=== PATIENT | female | born 1965 | race Caucasian/White ===

== ENCOUNTER → 2016-08-30 | Outpatient (CLI) | payer OTHER ==
[~2016-08-30] MED LIST: ALBUAER2 INH; CETI10TA84 PO; CLXOPS3 OPR; ESCI10TA17 PO; EST1 PO; FLUT0.15 NAE; LISI-788 PO; LORA-741 PO; MISCCAP80 PO; OMEG12006 PO; OMEP40CA PO; ONDA4TAB46 PO; OXYC-57 PO; VITACAP26 PO; ZOLP5TAB PO
[2016-08-30 13:37] LABS: ESTIMATED AVERAGE GLUCOSE 148 mg/dl; HA1C FLAG Normal (Normal)
== END | disposition home or self-care (01) ==
LOC: C.LABPVFM 07:45
PROVIDERS: ATTEND Physician Assistant
DX: E11.9 Type 2 diabetes mellitus without complications (principal); R73.9 Hyperglycemia, unspecified

== ENCOUNTER → 2017-05-14 | Outpatient (CLI) | payer OTHER ==
--- NOTE | 2017-05-14 13:14 | DIAGNOSTIC IMAGING REPORT ---
L FOOT MIN 3 VIEWS ROUTINE CLINICAL HISTORY: HEEL PAIN COMPARISON: None. DISCUSSION: No fractures or dislocations are visualized. There is a small Achilles insertional spur and small plantar calcaneal spur. IMPRESSION: Calcaneal spurring. Otherwise unremarkable conventional radiographic evaluation of the left foot Electronically signed by: Shyam Randall M.D. 05/14/2017 1:12 PM Dictated Date/Time: 05/14/2017 1:12 PM
== END | disposition home or self-care (01) ==
LOC: C.RADPV 13:00
PROVIDERS: ATTEND Chiropractor
DX: M77.32 Calcaneal spur, left foot (principal)

== ENCOUNTER → 2017-06-19 | Outpatient (CLI) | payer OTHER ==
[~2017-06-19] MED LIST changes: +OPTIRAY 320 IV PRN
--- NOTE | 2017-06-19 12:07 | DIAGNOSTIC IMAGING REPORT ---
ABD/PELVIS IV AND ORAL CONT CT DOSE: 808.84 mGycm HISTORY: Pain. Nausea. PAIN UPPER ABDOMEN TECHNIQUE: Multiaxial CT images of the abdomen and pelvis were performed following the use of intravenous and oral contrast. A dose lowering technique was utilized adhering to the principles of ALARA. COMPARISON STUDY: 08/28/2015 FINDINGS: Lung bases are clear. Liver spleen and pancreas appear unremarkable. 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 Mild wall thickening and distention of the proximal to mid small bowel. Mild hyperemia of the small bowel suggesting a generalized nonspecific enteritis. Mild rectal fecal impaction. Moderate fecal load throughout the colon. Mild bladder wall thickening. Mild pericystic infiltrative change raising the possibility of a potential cystitis. IMPRESSION: 1. Nonspecific hyperemia and wall thickening of the small bowel suggesting a generalized enteritis. 2. Mild bladder wall thickening with mild pericystic infiltrative change. This suggestive of a cystitis. 3. Study is otherwise remarkable for a mild fecal impaction. The above report was generated using voice recognition software. It may contain grammatical, syntax or spelling errors. Electronically signed by: Heladio Floyd M.D. 06/19/2017 12:05 PM Dictated Date/Time: 06/19/2017 11:53 AM
== END | disposition home or self-care (01) ==
LOC: C.CTS 10:13
PROVIDERS: ATTEND Internal Medicine Gastroenterology
DX: R10.10 Upper abdominal pain, unspecified (principal); K59.8 Other specified functional intestinal disorders

== ENCOUNTER → 2017-06-27 | Outpatient (CLI) | payer OTHER ==
[~2017-06-27] MED LIST changes: -OPTIRAY 320 IV PRN
== END | disposition home or self-care (01) ==
LOC: C.LAB 17:53
PROVIDERS: ATTEND Physician Assistant Medical
DX: R39.9 Unspecified symptoms and signs involving the genitourinary system (principal)

== ENCOUNTER → 2017-07-01 | Outpatient (CLI) | payer OTHER ==
[2017-07-01 12:59] LABS: BASO % 0.7 %; BASO ABS # 0.04 K/uL (0-0.2); EOS % 1.9 %; EOS ABS # 0.11 K/uL (0-0.5); HEMATOCRIT 42.9 % (37-47); HEMOGLOBIN 14.7 g/dL (12.0-16.0); IG# 0.02 K/uL (0.00-0.02); LYMPH % 23.6 %; LYMPH ABS # 1.36 K/uL (1.2-3.4); MEAN CELL VOLUME 85.8 fL (80-100); MEAN CORPUSCULAR HEMOGLOBIN 29.4 pg (25-34); MEAN CORPUSCULAR HGB CONC 34.3 g/dl (32-36); MEAN PLATELET VOLUME 10.7 fL (7.4-10.4); MONO % 7.8 %; MONO ABS # 0.45 K/uL (0.11-0.59); NEUT % 65.7 %; NEUT ABS # 3.79 K/uL (1.4-6.5); PLATELET COUNT 222 K/uL (130-400); RED CELL DISTRIBUTION WIDTH CV 13.6 % (11.5-14.5); RED CELL DISTRIBUTION WIDTH SD 42.8 fL (36.4-46.3); WHITE BLOOD COUNT 5.77 K/uL (4.8-10.8)
--- NOTE | 2017-07-01 13:25 | DIAGNOSTIC IMAGING REPORT ---
(RENAL)RETROPERITON COMP CLINICAL HISTORY: 52 years-old Female presenting with R39.9 UTI symptoms R50.9 Fever T78.3XXA Angioedema N32.89 Bladder . TECHNIQUE: Real-time grayscale and limited color Doppler ultrasound imaging of the kidneys and bladder was performed. COMPARISON: CT from 06/19/2017. FINDINGS: Right kidney: Normal echogenicity of renal parenchyma. Right kidney measures 11.4 cm. No hydronephrosis. No convincing evidence of calculus or mass. Left kidney: Normal echogenicity of renal parenchyma. Left kidney measures 12.4 cm. No hydronephrosis. No convincing evidence of calculus or mass. Bladder: Normal. Bilateral ureteral jets present. Other: None. IMPRESSION: 1. Normal renal ultrasound. No obstruction. Electronically signed by: Xander Pitts M.D. 07/01/2017 1:24 PM Dictated Date/Time: 07/01/2017 1:22 PM
[2017-07-01 13:26] LABS: HEMOGLOBIN A1C 7.8 % (4.5-5.6)
[2017-07-01 17:04] LABS: BLOOD UREA NITROGEN 12 mg/dl (7-18); CALCIUM 8.6 mg/dl (8.5-10.1); CARBON DIOXIDE 29 mmol/L (21-32); CREATININE 0.84 mg/dl (0.60-1.20); GLUCOSE 215 mg/dl (70-99); POTASSIUM 3.7 mmol/L (3.5-5.1); SODIUM 135 mmol/L (136-145)
== END | disposition home or self-care (01) ==
LOC: C.ULTRBC 11:55
PROVIDERS: ATTEND Physician Assistant Medical
DX: T78.3XXA Angioneurotic edema, initial encounter (principal); X58.XXXA Exposure to other specified factors, initial encounter; N32.89 Other specified disorders of bladder; R50.9 Fever, unspecified; R39.9 Unspecified symptoms and signs involving the genitourinary system

== ENCOUNTER 2017-10-27 13:35 | Emergency (ER) | payer OTHER ==
[~2017-10-27] VITALS: Ht 162.6 cm; Wt 79.0 kg
[2017-10-27 13:44] VITALS: TEMP 36.8; Ht 162.6 cm; Wt 79.0 kg
[2017-10-27 14:02] VITALS: O2SAT 97
[2017-10-27 14:12] LABS: BASO % 0.6 %; BASO ABS # 0.04 K/uL (0-0.2); EOS % 2.2 %; EOS ABS # 0.14 K/uL (0-0.5); HEMATOCRIT 43.9 % (37-47); HEMOGLOBIN 15.4 g/dL (12.0-16.0); IG# 0.02 K/uL (0.00-0.02); LYMPH % 33.2 %; LYMPH ABS # 2.07 K/uL (1.2-3.4); MEAN CELL VOLUME 83.8 fL (80-100); MEAN CORPUSCULAR HEMOGLOBIN 29.4 pg (25-34); MEAN CORPUSCULAR HGB CONC 35.1 g/dl (32-36); MEAN PLATELET VOLUME 10.8 fL (7.4-10.4); MONO % 6.3 %; MONO ABS # 0.39 K/uL (0.11-0.59); NEUT % 57.4 %; NEUT ABS # 3.57 K/uL (1.4-6.5); PLATELET COUNT 254 K/uL (130-400); RED CELL DISTRIBUTION WIDTH CV 12.8 % (11.5-14.5); RED CELL DISTRIBUTION WIDTH SD 38.8 fL (36.4-46.3); WHITE BLOOD COUNT 6.23 K/uL (4.8-10.8)
[2017-10-27] MEDS ORDERED: DiphenhydrAMINE HCL 50 MG/ML VIAL IV STA (14:17)
[2017-10-27] MEDS ORDERED: SODIUM CHLORIDE 0.9% 1000ML 2,000 ML IV STA (14:17)
[2017-10-27] MEDS ORDERED: METOCLOPRAMIDE HCL INJ 5 MG/ML 2 ML VIAL IV STA (14:17)
--- NOTE | 2017-10-27 14:20 | EMERGENCY ROOM VISIT NOTE ---
History Report prepared by Bryce: Luis M Campo Under the Supervision of: Dr. Augusto Mackenzie M.D. First contact with patient: 13:59 Chief Complaint: CHEST PAIN Stated Complaint: ELEVATED BP,CHEST PAIN,HEADACHE Nursing Triage Summary: midsternal chest pain, started thurs am while at work. steady pain denies into left shoulder and upper abdomen at times. also complaining of headache which also started thurs. "that's how I knew that my blood pressure was elevated. History of Present Illness The patient is a 52 year old female who presents to the Emergency Room with complaints of intermittent chest pain that began 3 days ago. The patient states that her chest pain has been constant, then went away yesterday but then started up again at 1800 last night with a headache. She denies a history of headaches but states that she usually gets them when she is hypertensive. The patient reports that she has been checking her blood pressure recently and that she checked it 3 times this morning. She states that she has still had the headaches even when she has been normotensive. The patient states that her headaches usually began when her diastolic blood pressure is over 90 and states that this has been happening since the age of 41. The patient also notes that she has been off of her blood pressure medications for 2 months, but has since started taking them for the past 3 days. She notes that she took 2.5mg Norvasc 3 days ago, but the headaches worsened so she said she took 5 mg 2 days ago and then after visiting her clinic she was raised to 10mg. The patient also notes that she is sometimes lightheaded when she sits up, that she was nauseous this morning, and had diarrhea two weeks ago. The patient denies painful urination. 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 Source of History: patient Onset: yesterday at 1800 Position: chest Timing: intermittent Associated Symptoms: + headache, + nausea, + diarrhea (two weeks ago ), No urinary symptoms Review of Systems See HPI for pertinent positives and negatives. A total of ten systems were reviewed and were otherwise negative. Past Medical & Surgical Medical Problems: (1) Abdominal pain (2) Anxiety and depression (3) Bronchitis (4) Cellulitis (5) Chest pain (6) Chest pain (7) Diarrhea (8) Enteritis (9) Esophageal Reflux (10) Gestational diabetes (11) Hypertension (12) Hypertension (13) Ileitis (14) Intractable abdominal pain (15) Liver lesion (16) Pneumonia Surgical Problems: (1) History of hernia repair (2) S/P JACQUELINE-BSO (total abdominal hysterectomy and bilateral salpingo- oophorectomy) Family History FHx: blood clots FHx: cancer FHx: diabetes FHx: hypertension Heart disease Seizures Social History Smoking Status: Never Smoker Alcohol Use: occasionally Drug Use: none Marital Status: Housing Status: lives with significant other Occupation Status: employed Current/Historical Medications Scheduled Amlodipine (Norvasc), 10 MG PO DAILY Cinnamon (Cinnamon Extract), 1 CAP PO DAILY Escitalopram (Lexapro), 10 MG PO DAILY Metformin Ext Rel (Glucophage Ext Rel), 1 TAB PO DAILY [place]-3 Fatty Acids ([place] 3), 1 CAP PO DAILY Probiotic Product (Probiotic), 1 TAB PO DAILY Vitamins C & E (Vitamin C), 1 CAP PO DAILY Scheduled PRN Albuterol Hfa (Ventolin Hfa), 2-4 PUFFS INH Q6H PRN for SOB/Wheezing Zolpidem Tartrate (Ambien), 5 MG PO HS PRN for Sleep Allergies Coded Allergies: Bacitracin (Verified Allergy, Mild, RASH, 10/27/17) GUI Inhibitors (Unverified Allergy, Unknown, ., 10/27/17) Diflunisal (Verified Allergy, Unknown, RASH, 10/27/17) Physical Exam Vital Signs Date Time Temp Pulse Resp B/P (MAP) Pulse Ox O2 Delivery O2 Flow Rate FiO2 10/27/17 17:28 89 20 138/75 98 10/27/17 17:00 75 20 135/78 97 Room Air 10/27/17 14:02 97 Room Air 10/27/17 13:58 77 10/27/17 13:57 97 Room Air 10/27/17 13:44 36.8 72 18 144/86 96 Room Air Physical Exam GENERAL: Awake, alert, uncomfortable-appearing, in no distress, fatigued HENT: Normocephalic, atraumatic. Oropharynx unremarkable. Dry cracked mucous membranes EYES: Normal conjunctiva. Sclera non-icteric. NECK: Supple. No nuchal rigidity. FROM. No JVD. RESPIRATORY: Clear to auscultation. CARDIAC: Regular rate, normal rhythm. Extremities warm and well perfused. Pulses equal. ABDOMEN: Soft, non-distended. No tenderness to palpation. No rebound or guarding. No masses. RECTAL: Deferred. MUSCULOSKELETAL: Chest examination reveals no tenderness. The back is symmetrical on inspection without obvious abnormality. There is no CVA tenderness to palpation. No joint edema. LOWER EXTREMITIES: Calves are equal size bilaterally and non-tender. No edema. No discoloration. NEURO: Normal sensorium. No sensory or motor deficits noted. normal cerebellar function with tyztpf-pa-[id number], alternating palms, yobw-jp-iekl SKIN: No rash or jaundice noted. Medical Decision & Procedures ER Provider Diagnostic Interpretation: Radiology results as stated below per my review and radiologist interpretation: HEAD WITHOUT CONTRAST (CT) CT DOSE: 537.48 mGy.cm HISTORY: Headache headache TECHNIQUE: Multiaxial CT images of the head were performed without the use of intravenous contrast. A dose lowering technique was utilized adhering to the principles of ALARA. Comparison: 02/08/2016 Findings: The paranasal sinuses and mastoid air cells are clear. The calvarium and skull base are intact. The ventricles and sulci are within normal limits. There is no mass, hematoma, midline shift, or acute infarct. Impression: No acute intracranial abnormality. The above report was generated using voice recognition software. It may contain grammatical, syntax or spelling errors. Electronically signed by: Heladio Floyd M.D. 10/27/2017 4:13 PM Dictated Date/Time: 10/27/2017 4:12 PM CHEST ONE VIEW PORTABLE CLINICAL HISTORY: Chest pain. Hypertension. COMPARISON STUDY: Chest radiograph August 06, 2015. FINDINGS: Lung volumes are normal. There is no pneumothorax or pleural effusion. There is no evidence for pulmonary edema. Cardiomediastinal silhouette is normal. Appearance of the chest is unchanged. IMPRESSION: No acute cardiopulmonary findings. Electronically signed by: Ori Florentino M.D. 10/27/2017 2:50 PM Dictated Date/Time: 10/27/2017 2:50 PM Laboratory Results 10/27/17 13:55 Red Blood Count 5.24, Mean Corpuscular Volume 83.8, Mean Corpuscular Hemoglobin 29.4, Mean Corpuscular Hemoglobin Concent 35.1, Mean Platelet Volume 10.8, Neutrophils (%) (Auto) 57.4, Lymphocytes (%) (Auto) 33.2, Monocytes (%) (Auto) 6.3, Eosinophils (%) (Auto) 2.2, Basophils (%) (Auto) 0.6, Neutrophils # (Auto) 3.57, Lymphocytes # (Auto) 2.07, Monocytes # (Auto) 0.39, Eosinophils # (Auto) 0.14, Basophils # (Auto) 0.04 10/27/17 13:55 Test 10/27/17 13:55 White Blood Count 6.23 K/uL (4.8-10.8) Red Blood Count 5.24 M/uL (4.2-5.4) Hemoglobin 15.4 g/dL (12.0-16.0) Hematocrit 43.9 % (37-47) Mean Corpuscular Volume 83.8 fL (80-100) Mean Corpuscular Hemoglobin 29.4 pg (25-34) Mean Corpuscular Hemoglobin Concent 35.1 g/dl (32-36) Platelet Count 254 K/uL (130-400) Mean Platelet Volume 10.8 fL (7.4-10.4) Neutrophils (%) (Auto) 57.4 % Lymphocytes (%) (Auto) 33.2 % Monocytes (%) (Auto) 6.3 % Eosinophils (%) (Auto) 2.2 % Basophils (%) (Auto) 0.6 % Neutrophils # (Auto) 3.57 K/uL (1.4-6.5) Lymphocytes # (Auto) 2.07 K/uL (1.2-3.4) Monocytes # (Auto) 0.39 K/uL (0.11-0.59) Eosinophils # (Auto) 0.14 K/uL (0-0.5) Basophils # (Auto) 0.04 K/uL (0-0.2) RDW Standard Deviation 38.8 fL (36.4-46.3) RDW Coefficient of Variation 12.8 % (11.5-14.5) Immature Granulocyte % (Auto) 0.3 % Immature Granulocyte # (Auto) 0.02 K/uL (0.00-0.02) Anion Gap 8.0 mmol/L (3-11) Est Creatinine Clear Calc Drug Dose 95.1 ml/min Estimated GFR () 113.2 Estimated GFR (Non- 97.7 BUN/Creatinine Ratio 14.0 (10-20) Calcium Level 8.8 mg/dl (8.5-10.1) Total Bilirubin 1.0 mg/dl (0.2-1) Direct Bilirubin 0.2 mg/dl (0-0.2) Aspartate Amino Transf (AST/SGOT) 20 U/L (15-37) Alanine Aminotransferase (ALT/SGPT) 35 U/L (12-78) Alkaline Phosphatase 94 U/L (45-117) Troponin I < 0.015 ng/ml (0-0.045) Total Protein 7.6 gm/dl (6.4-8.2) Albumin 4.4 gm/dl (3.4-5.0) Lipase 173 U/L (73-393) Laboratory results reviewed by me Medications Administered Medications (Trade) Dose Ordered Sig/Catherine Route Start Time Stop Time Status Last Admin Dose Admin Sodium Chloride 2,000 ml @ 999 mls/hr Q2H1M STAT IV 10/27/17 14:17 10/27/17 16:17 DC 10/27/17 14:38 999 MLS/HR Metoclopramide HCl (Reglan Inj) 10 mg NOW STAT IV 10/27/17 14:17 10/27/17 14:20 DC 10/27/17 14:39 10 MG Diphenhydramine HCl (Benadryl Inj) 25 mg NOW STAT IV 10/27/17 14:17 10/27/17 14:20 DC 10/27/17 14:38 25 MG Dexamethasone Sodium Phosphate (Dexamethasone Inj Pf) 10 mg NOW ONCE IV 10/27/17 16:45 10/27/17 16:46 DC 10/27/17 17:21 10 MG ECG Per My Interpretation Indication: chest pain Rate (beats per minute): 75 Rhythm: normal sinus Findings: no acute ischemic change, other (normal axis) ED Course 1405: The patient was evaluated in room C02A. A complete history and physical exam was performed. 1530: I checked on the patient. 1649: I reevaluated the patient. 1705: I reevaluated the patient and she is doing well. Discussed results and discharge instructions: She verbalized understanding and agreement. The patient is ready for discharge. Medical Decision I reviewed the patient's past medical history, medications, and the nursing notes as described above. Differential diagnosis: Etiologies such as cardiac ischemia, aortic dissection, pulmonary embolism, pneumonia, pneumothorax, musculoskeletal, infections, pericarditis, myocarditis , esophageal rupture, gastrointestinal, migraine headache, meningitis, sinusitis , CO exposure, ICH, SAH, tumor, headache, sinus thrombosis, arterial dissection , as well as others were entertained. 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 On arrival the patient is uncomfortable but in NAD, AFVSS. The patient is neuro intact including normal cerebellar function with dppzax-qw-pezg, alternating palms, xpfr-he-jejv. EKG unremarkable. CXR negative. CT head negative. WBC wnl. Chemistry unremarkable. Troponin negative in the setting of days of symptoms. Sx improved after IVF, reglan, benadryl. BP improved to 130s/70s. Given dexamethasone for additional pain relief and to help prevent SANDS recurrence. Regarding CP, Heart score 3, low risk, acs unlikely. No tachycardia or hypoxia so PE not likely. Not positional, pericarditis not likely. No tearing pain and equal pulses, dissection not likely. Sx possibly provoked by mild dehydration. Given patient's symptoms occurred during periods of normotension as well, BP likely playing only minor role at this time. Findings and plan for follow-up reviewed with patient. Patient agreeable and d/c'd per discharge instructions. Medication Reconcilliation Current Medication List: was personally reviewed by me Blood Pressure Screening Patient's blood pressure: Normal blood pressure Impression Primary Impression: Substernal precordial chest pain Additional Impression: Headache Scribe Attestation The scribe's documentation has been prepared under my direction and personally reviewed by me in its entirety. I confirm that the note above accurately reflects all work, treatment, procedures, and medical decision making performed by me. Departure Information Dispostion Home / Self-Care Referrals Xander Ho M.D. (PCP) Forms Call Back Authorization, HOME CARE DOCUMENTATION FORM, IMPORTANT VISIT INFORMATION Patient Instructions ED Headache Migraine, ED Headache Tension, My [facility] Additional Instructions Please follow up with your primary care physician in the next 1-3 days for re- evaluation. The cause of your symptoms are unclear at this time and may be due to a tension/ migraine headache which may have been provoked by mild dehydration. Alternately , your blood pressure may play a role however you did also have a headache when your blood pressure was normal. Otherwise, your exam, EKG, chest xray, lab results, and CT scan of your head did not show signs of an emergent condition at this time. Acetaminophen or ibuprofen for pain and fevers as needed. Given that your blood pressure was slightly low intermittently, resume your amlodipine at 2.5 mg daily and allow at least another 4-5 days to achieve a steady state therapeutic level before increase, unless otherwise recommended by your doctor. Drink plenty of fluids to ensure hydration. Return to the emergency department for worsening symptoms as described in the accompanying instructions. Problem Qualifiers
[2017-10-27 14:39] LABS: ALBUMIN 4.4 gm/dl (3.4-5.0); ALKALINE PHOSPHATASE 94 U/L (45-117); ALT/SGPT 35 U/L (12-78); AST/SGOT 20 U/L (15-37); BLOOD UREA NITROGEN 10 mg/dl (7-18); CALCIUM 8.8 mg/dl (8.5-10.1); CARBON DIOXIDE 25 mmol/L (21-32); CREATININE 0.72 mg/dl (0.60-1.20); GLUCOSE 204 mg/dl (70-99); LIPASE 173 U/L (73-393); POTASSIUM 3.9 mmol/L (3.5-5.1); SODIUM 136 mmol/L (136-145); TOTAL PROTEIN 7.6 gm/dl (6.4-8.2)
--- NOTE | 2017-10-27 14:52 | DIAGNOSTIC IMAGING REPORT ---
CHEST ONE VIEW PORTABLE CLINICAL HISTORY: Chest pain. Hypertension. COMPARISON STUDY: Chest radiograph August 06, 2015. FINDINGS: Lung volumes are normal. There is no pneumothorax or pleural effusion. There is no evidence for pulmonary edema. Cardiomediastinal silhouette is normal. Appearance of the chest is unchanged. IMPRESSION: No acute cardiopulmonary findings. Electronically signed by: Ori Florentino M.D. 10/27/2017 2:50 PM Dictated Date/Time: 10/27/2017 2:50 PM
[2017-10-27] MEDS ORDERED: CINN500C13 PO (14:56)
[2017-10-27] MEDS ORDERED: PROB1TAB16 PO (14:56)
[2017-10-27] MEDS ORDERED: ESCI10TA17 PO (14:56)
[2017-10-27] MEDS ORDERED: VNTHFA/IN INH (14:56)
[2017-10-27] MEDS ORDERED: ZOLP5TAB PO (14:56)
[2017-10-27] MEDS ORDERED: OMEG100046 PO (14:56)
[2017-10-27] MEDS ORDERED: AMLO10TA3 PO (14:56)
[2017-10-27] MEDS ORDERED: VITACAP26 PO (14:56)
[2017-10-27] MEDS ORDERED: METFTAB PO (14:56)
--- NOTE | 2017-10-27 16:15 | DIAGNOSTIC IMAGING REPORT ---
HEAD WITHOUT CONTRAST (CT) CT DOSE: 537.48 mGy.cm HISTORY: Headache headache TECHNIQUE: Multiaxial CT images of the head were performed without the use of intravenous contrast. A dose lowering technique was utilized adhering to the principles of ALARA. Comparison: 02/08/2016 Findings: The paranasal sinuses and mastoid air cells are clear. The calvarium and skull base are intact. The ventricles and sulci are within normal limits. There is no mass, hematoma, midline shift, or acute infarct. Impression: No acute intracranial abnormality. The above report was generated using voice recognition software. It may contain grammatical, syntax or spelling errors. Electronically signed by: Heladio Floyd M.D. 10/27/2017 4:13 PM Dictated Date/Time: 10/27/2017 4:12 PM
[2017-10-27] MEDS ORDERED: DEXAMETHASONE **PF** INJ 10 MG/ML VIAL IV ONE (16:45)
[2017-10-27] MEDS ORDERED: DEXAMETHASONE SOD INJ 10 MG/ML VIAL ONE (17:19)
[2017-10-27 17:28] VITALS: BP 138/75; PULSE 89; O2SAT 98
== END 2017-10-27 17:29 | disposition home or self-care (01) ==
LOC: C.EDB 13:37 → C.EDC 17:29
DX: R07.2 Precordial pain (principal); R51 Headache; I10 Essential (primary) hypertension; R42 Dizziness and giddiness; Z82.49 Family history of ischemic heart disease and other diseases of the circulatory system; Z79.899 Other long term (current) drug therapy; Z79.84 Long term (current) use of oral hypoglycemic drugs; Z88.8 Allergy status to other drugs, medicaments and biological substances; Z88.6 Allergy status to analgesic agent

== ENCOUNTER → 2017-11-11 | Outpatient (CLI) | payer OTHER ==
[~2017-11-11] MED LIST changes: -ALBUAER2 INH; +AMLO10TA3 PO; -CETI10TA84 PO; +CINN500C13 PO; -CLXOPS3 OPR; -EST1 PO; -FLUT0.15 NAE; -LISI-788 PO; -LORA-741 PO; +METFTAB PO; -MISCCAP80 PO; +OMEG100046 PO; -OMEG12006 PO; -OMEP40CA PO; -ONDA4TAB46 PO; -OXYC-57 PO; +PROB1TAB16 PO; +VNTHFA/IN INH
[2017-11-11 17:28] LABS: BASO % 0.5 %; BASO ABS # 0.03 K/uL (0-0.2); EOS % 2.4 %; EOS ABS # 0.15 K/uL (0-0.5); HEMATOCRIT 43.3 % (37-47); HEMOGLOBIN 15.3 g/dL (12.0-16.0); IG# 0.01 K/uL (0.00-0.02); LYMPH % 36.5 %; MEAN CELL VOLUME 83.4 fL (80-100); MEAN CORPUSCULAR HEMOGLOBIN 29.5 pg (25-34); MEAN CORPUSCULAR HGB CONC 35.3 g/dl (32-36); MEAN PLATELET VOLUME 11.6 fL (7.4-10.4); MONO ABS # 0.38 K/uL (0.11-0.59); NEUT % 54.4 %; NEUT ABS # 3.43 K/uL (1.4-6.5); PLATELET COUNT 263 K/uL (130-400); RED CELL DISTRIBUTION WIDTH CV 13.1 % (11.5-14.5); RED CELL DISTRIBUTION WIDTH SD 39.2 fL (36.4-46.3)
[2017-11-11 17:38] LABS: ALBUMIN 4.1 gm/dl (3.4-5.0); ALKALINE PHOSPHATASE 90 U/L (45-117); ALT/SGPT 40 U/L (12-78); AST/SGOT 22 U/L (15-37); BLOOD UREA NITROGEN 13 mg/dl (7-18); CARBON DIOXIDE 25 mmol/L (21-32); CREATININE 0.79 mg/dl (0.60-1.20); GLUCOSE 211 mg/dl (70-99); POTASSIUM 3.7 mmol/L (3.5-5.1); SODIUM 137 mmol/L (136-145); TOTAL PROTEIN 7.4 gm/dl (6.4-8.2)
[2017-11-12 05:55] LABS: HEMOGLOBIN A1C 8.3 % (4.5-5.6)
== END | disposition home or self-care (01) ==
LOC: C.LABBFT 14:03
PROVIDERS: ATTEND Physician Assistant Medical
DX: E11.9 Type 2 diabetes mellitus without complications (principal); R19.7 Diarrhea, unspecified

== ENCOUNTER → 2017-11-11 | Outpatient (CLI) | payer OTHER | END | disposition home or self-care (01) | LOC: C.PATHSPEC 10:26 | PROVIDERS: ATTEND Urology | DX: N32.89 Other specified disorders of bladder (principal) ==

== ENCOUNTER → 2017-11-13 | Outpatient (CLI) | payer OTHER | END | disposition home or self-care (01) | LOC: C.LABBFT 07:44 | PROVIDERS: ATTEND Urology | DX: N32.89 Other specified disorders of bladder (principal); R19.7 Diarrhea, unspecified ==

== ENCOUNTER → 2017-11-14 | Outpatient (CLI) | payer OTHER | END | disposition home or self-care (01) | LOC: C.LABBFT 08:47 | PROVIDERS: ATTEND Physician Assistant Medical | DX: E11.9 Type 2 diabetes mellitus without complications (principal); R19.7 Diarrhea, unspecified ==

== ENCOUNTER 2020-08-04 16:40 | Observation (INO) ==
[2020-08-04] MEDS ORDERED: SODIUM CHLORIDE 0.9% 500 ML IV STA (17:06)
[2020-08-04 17:16] LABS: Basophils # (auto) 0.04 K/uL (0-0.2); Basophils % (auto) 0.6 %; Eosinophils % (auto) 1.6 %; Hematocrit (blood only) 43.5 % (37-47); Hemoglobin 15.2 g/dL (12.0-16.0); Immature Granulocytes # (auto) 0.01 K/uL (0.00-0.02); Immature Granulocytes % (auto) 0.2 %; Lymphocytes # (auto) 2.72 K/uL (1.2-3.4); Lymphocytes % (auto) 43.9 %; Mean Corpuscular Hemoglobin 29.6 pg (25-34); Mean Corpuscular Hgb Conc 34.9 g/dL (32-36); Mean Corpuscular Volume 84.8 fL (80-100); Monocytes # (auto) 0.41 K/uL (0.11-0.59); Monocytes % (auto) 6.6 %; Neutrophils # (auto) 2.92 K/uL (1.4-6.5); Neutrophils % (auto) 47.1 %; Platelet Count 290 K/uL (130-400); RDW Coefficient of Variation 12.8 % (11.5-14.5); RDW Standard Deviation 39.2 fL (36.4-46.3); Red Blood Count 5.13 M/uL (4.2-5.4)
[2020-08-04 17:24] LABS: Prothrombin Time 10.1 Seconds (9.0-12.0)
[2020-08-04 17:37] LABS: Alanine Aminotransferase 43 U/L (12-78); Albumin Level 4.4 gm/dl (3.4-5.0); Aspartate Aminotransferase 18 U/L (15-37); BUN Creatinine Ratio 11.7 (10-20); Bilirubin Direct 0.2 mg/dl (0-0.2); Blood Urea Nitrogen 9 mg/dl (7-18); Calcium 9.4 mg/dl (8.5-10.1); Carbon Dioxide 27 mmol/L (21-32); Chloride 105 mmol/L (98-107); Creatinine Clr Calc Pharmacy 83.4 ml/min; Est GFR (African American) 99.1 ml/min; Est GFR (Non-African American) 85.5 ml/min; Glucose 201 mg/dl (70-99); Lipase 244 U/L (73-393); Magnesium 2.3 mg/dl (1.8-2.4); Potassium 3.7 mmol/L (3.5-5.1); Sodium 138 mmol/L (136-145)
[2020-08-04 17:46] LABS: Albumin Globulin Ratio 1.3 (0.9-2); Alkaline Phosphatase 102 U/L (45-117); Bilirubin,Total 1.3 mg/dl (0.2-1); Globulin 3.4 gm/dl (2.5-4.0); Phosphorus 2.8 mg/dl (2.5-4.9); Total Protein 7.8 gm/dl (6.4-8.2); Troponin I < 0.015 ng/ml (0-0.045)
--- NOTE | 2020-08-04 18:17 | XRay Report ---
XR chest 1V portable CLINICAL HISTORY: Chest Pain COMPARISON STUDY: Chest CT May 27, 2019. FINDINGS: Lung volumes are normal. Lungs are clear. There is no pneumothorax or pleural effusion. Car diac size is normal. Mediastinal contours are normal. There is no evidence for pulmonary edema. IMPRESSION: No acute cardiopulmonary findings. ACT 112: Negative or not required by law. Electronically signed by: Ori Florentino M.D. 08/04/2020 6:16 PM
[2020-08-04] MEDS ORDERED: OPTIRAY 350 500ml IV ONE (18:36)
--- NOTE | 2020-08-04 19:00 | CT Scan Report ---
CT ANGIOGRAPHY OF THE CHEST, PULMONARY EMBOLUS PROTOCOL CLINICAL HISTORY: cp/sob with minimal exertion, r/o PE COMPARISON STUDY: Chest CT May 27, 2019. Chest radiograph performed earlier today. TECHNIQUE: Following IV administration of 120 mL of Optiray, helical axial images of the chest were o btained utilizing the pulmonary embolus protocol. Maximal intensity projections and sagittal and cor onal reformats were viewed on an independent 3D workstation. IV contrast was administered without co mplication. Automated exposure control was utilized for the study. A dose lowering technique was ut ilized adhering to the principles of ALARA. CT DOSE: 287.56 mGy.cm FINDINGS: No pulmonary emboli are identified. There is no thoracic aortic dissection. The size of th e heart is within normal limits. There is no pericardial effusion. No enlarged thoracic lymph nodes a re present. Central airways are patent. There is no consolidation to suggest pneumonia. There is no p neumothorax or pleural effusion. Visualized portions of the upper abdomen demonstrate geographic hepa tic steatosis. IMPRESSION: 1. No pulmonary emboli identified. 2. No acute process within the chest. 3. Hepatic steatosis. ACT 112: Negative or not required by law. Electronically signed by: Ori Florentino M.D. 08/04/2020 6:59 PM
[2020-08-04 19:01] LABS: Lyme Ab IgG w/WB Rflx Negative (Negative)
[2020-08-04 19:02] LABS: Lyme Ab IgM w/WB Rflx Negative (Negative)
[2020-08-04] MEDS ORDERED: ASPIRIN CHEW 324 MG PO STA (19:05)
--- NOTE | 2020-08-04 19:50 | Emergency Department Note ---
Impression & Plan Exertional dyspnea, LBBB (left bundle branch block), Exertional chest pain ED Provider Note NAME: DIA NEW AGE: 55 SEX: F ARRIVES VIA: Walk-In INFORMANT: Patient, ED PROVIDER(S): Augusto Mackenzie MD CHIEF COMPLAINT: Exertional chest pain/sob PLAN: Disposition: Admit MEDICAL DECISION MAKING: The patient is a pleasant 55-year-old woman with a past medical history of hypertension, hyperlipidemia, diabetes who presents to the emergency department referred from PCPs office after being seen for a regularly scheduled visit and she reported ongoing shortness of breath and chest tightness with exertion for several months and had an EKG performed which showed a new left bundle branch block. Patient denies any active chest pain at this time but reports she did feel the dyspnea and chest heaviness when walking up steps to go to her appointment today. She reports the symptoms quite frequently with minimal exertion but denies any acute episode of severe chest pain. She reports a family history of heart disease. She denies any history of blood clots in her legs or lungs. Otherwise she denies any recent fevers, chills, cough, congestion, GI or symptoms. On arrival patient is well-appearing in no acute distress, afebrile with blood pressure 160s/90s and vital signs otherwise stable. Exam is otherwise unremarkable. EKG demonstrates left bundle branch block - no sgarbossa criteria. Chest x-ray negative for acute cardiopulmonary process. WBC, H/H and platelets within normal limits. Chemistry without metabolic aci dosis. Electrolytes and LFTs are unremarkable. Troponin negative/undetectable. Lipase is not elevated. TSH within normal limits. COVID-19 PCR was negative. Lyme screen also performed and was negative as the patient reports a remote history of tick bite. CTA of the chest was negative for PE or focal infiltrates. Heart score 6, moderate risk. Given the patient's report of exertional chest pain in the setting of left bundle branch block of unclear chronicity reasonable to meet the patient for further evaluation. The patient is in agreement with this. Triage Nursing notes reviewed and agree them. Prior medical records reviewed Vital Signs: reviewed and remarkable for no significant abnormalities Differential diagnosis: Cardiac ischemia, aortic dissection, pulmonary embolism, pneumothorax, pneumonia, pericarditis, myocarditis, esophageal rupture, GERD, cholecystitis, pancreatitis, musculoskeletal, as well as other pathologies. ER treatment provided: See below. Diagnostics interpreted by me: ECG: Normal sinus rhythm, 74 bpm, no ectopy, left bundle branch block, no sgarbossa criteria. Cardiac Monitoring: An order for continuous cardiac monitoring was placed and demonstrated Normal sinus rhythm, 74 bpm, no ectopy. Laboratory studies: See below Imaging studies: See below Consultation(s): Case was discussed with [place]. [place]jo, [facility] [place], who will evaluate the patient for admission. HPI: The patient is a pleasant 55-year-old woman with a past medical history of hypertension, hyperlipidemia, diabetes who presents to the emergency department referred from PCPs office after being seen for a regularly scheduled visit and she reported ongoing shortness of breath and chest tightness with exertion for several months and had an EKG performed which showed a new left bundle branch block. Patient denies any active chest pain at this time but reports she did feel the dyspnea and chest heaviness when walking up steps to go to her appointment today. She reports the symptoms quite frequently with minimal exertion but denies any acute episode of severe chest pain. She reports a famil y history of heart disease. She denies any history of blood clots in her legs or lungs. Otherwise she denies any recent fevers, chills, cough, congestion, GI or symptoms. ROS: See above HPI for pertinent positives & negatives. A total of 10 systems reviewed and were otherwise negative. PAST MEDICAL HISTORY:See Below PAST SURGICAL HISTORY:See Below FAMILY HISTORY:See Below SOCIAL HISTORY:See Below HOME MEDICATIONS:See Below ALLERGIES:See Below VITALS:See Below PHYSICAL EXAMINATION: GENERAL: Awake, alert, well-appearing, in no distress HENT: Normocephalic, atraumatic. Oropharynx with dry mucous membranes and otherwise unremarkable. EYES: Normal conjunctiva. Sclera non-icteric. NECK: Supple. No nuchal rigidity. FROM. No JVD. RESPIRATORY: Clear to auscultation. CARDIAC: Regular rate, normal rhythm. Extremities warm and well perfused. Pulses equal. ABDOMEN: Soft, non-distended. No tenderness to palpation. No rebound or guarding. No masses. RECTAL: Deferred. MUSCULOSKELETAL: Chest examination reveals no tenderness. The back is symmetrical on inspection without obvious abnormality. There is no CVA tenderness to palpation. No joint edema. LOWER EXTREMITIES: Calves are equal size bilaterally and non-tender. No edema. No discoloration. NEURO: Normal sensorium. No sensory or motor deficits noted. SKIN: No rash or jaundice noted. Augusto Mackenzie MD Past Med/Surg History Medical History Abdominal pain Abnormal finding on imaging Acid reflux Allergic rhinitis Anemia Depression Diabetes Headache, cervicogenic Hepatic steatosis Hypertension Insomnia Intractable abdominal pain Jejunal inflammation Plantar fasciitis Pneumonia Seizures Type 2 diabetes mellitus Surgical History H/O colonoscopy H/O esophagogastroduodenoscopy History of hernia repair History of hysterectomy with bilateral oophorectomy History of laparoscopy fulguration of oviducts History of oral surgery History of tonsillectomy Family History Mother Hypertension Pulmonary embolism Daughter Nephrolithiasis Father Cancer Diabetes Grandmother Breast cancer Grandfather Cardiac disorder Social History Smoking Status: Former smoker Tobacco Type: Cigarettes Hx Alcohol Use: No Hx Substance Use: No Preferred Language: Yakut Communication Ability: Effective Visual Impairment: Limited Hearing Ability: Normal Quality Process Lead Required: No Beliefs That Will Affect Care: None marital status: Single Current Living Situation: Family current occupational status: employed 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 Verified 08/04/20 18:19 bacitracin AdvReac Mild RASH Verified 08/04/20 18:19 lisinopril AdvReac Mild Angiodema Verified 08/04/20 18:19 GUI Inhibitors AdvReac Unknown Angioedema Verified 08/04/20 18:19 estradiol AdvReac Angioedema Verified 08/04/20 18:19 hydrochlorothiazide AdvReac Angioedema Verified 08/04/20 18:19 Home Meds Home Medications Medication Instructions Recorded Confirmed Lactobacillus 1 cap PO QAM cap 09/08/18 08/04/20 acidophilus-Bifidobac.animalis 31 billion cell capsule omega-3 acid ethyl esters 1 gram 1 cap PO QAM cap 09/09/18 08/04/20 capsule ascorbic acid (vitamin C) 1,000 mg PO QAM 05/27/19 08/04/20 cetirizine 10 mg tablet 10 mg PO .every other day tab 01/05/20 08/04/20 loratadine 10 mg capsule 10 mg PO .every other day cap 01/05/20 08/04/20 zolpidem 5 mg tablet 5 mg PO HS PRN #30 tab 01/05/20 08/04/20 blood sugar diagnostic #10 ea 02/21/20 08/04/20 pen needle, diabetic 31 gauge x ea 03/31/20 08/04/20 3/16" amlodipine 2.5 mg PO QAM 08/04/20 08/04/20 atorvastatin 20 mg PO QAM 08/04/20 08/04/20 cholecalciferol (vitamin D3) 50 mcg PO QAM 08/04/20 08/04/20 escitalopram oxalate 10 mg PO QAM 08/04/20 08/04/20 liraglutide [Victoza 3-Jj] 1.8 mg SQ QAM 08/04/20 08/04/20 Previous Rx's Medication Instructions Recorded albuterol sulfate 90 mcg/actuation 2 puffs INHALATION Q4H PRN #18 gm 05/28/19 aerosol inhaler ibuprofen 800 mg tablet 800 mg PO TID PRN #90 tab 09/07/19 fluticasone propionate 50 2 spray INTRANASAL DAILY PRN #15.8 11/03/19 mcg/actuation nasal ml spray,suspension hydrocortisone 2.5 % topical cream 1 applic TOPICAL TID PRN #30 g 01/12/20 glimepiride 1 mg tablet 1 mg PO QAM #90 tab 04/03/20 lorazepam 0.5 mg tablet 0.5 - 1 mg PO DAILY PRN #30 tab 05/08/20 Results & Data (ED) Vital Signs Vital Signs - 24 hr 08/04/20 15:46 08/04/20 16:43 08/04/20 16:57 Temperature 36.5 C Temperature Source Temporal Artery Scan Pulse Rate 84 80 78 Pulse Rate from SpO2 Sensor Respiratory Rate 20 18 20 Respiratory Depth Normal Blood Pressure 133/78 161/92 H Blood Pressure Mean 96 115 Pulse Oximetry 98 Oxygen Delivery Method Room Air Sepsis Recent Fever Within 48 Hours No Sepsis New/Unexplained Change in Mental Status No Sepsis Action Taken by Nursing No Action Required 08/04/20 17:00 08/04/20 17:06 08/04/20 17:30 Temperature Temperature Source Oral Pulse Rate 78 72 Pulse Rate from SpO2 Sensor Respiratory Rate 20 21 Respiratory Depth Blood Pressure Blood Pressure Mean Pulse Oximetry Oxygen Delivery Method Room Air Sepsis Recent Fever Within 48 Hours Sepsis New/Unexplained Change in Mental Status Sepsis Action Taken by Nursing 08/04/20 18:06 08/04/20 18:07 08/04/20 18:30 Temperature Temperature Source Pulse Rate 73 78 71 Pulse Rate from SpO2 Sensor 74 77 72 Respiratory Rate 20 16 21 Respiratory Depth Blood Pressure 168/100 H Blood Pressure Mean 122 Pulse Oximetry 94 96 96 Oxygen Delivery Method Sepsis Recent Fever Within 48 Hours Sepsis New/Unexplained Change in Mental Status Sepsis Action Taken by Nursing 08/04/20 19:07 08/04/20 19:08 08/04/20 19:09 Temperature Temperature Source Pulse Rate 120 H 72 71 Pulse Rate from SpO2 Sensor 76 72 71 Respiratory Rate 21 23 21 Respiratory Depth Blood Pressure 162/94 H Blood Pressure Mean 116 Pulse Oximetry 97 98 97 Oxygen Delivery Method Sepsis Recent Fever Within 48 Hours Sepsis New/Unexplained Change in Mental Status Sepsis Action Taken by Nursing 08/04/20 19:30 08/04/20 19:31 08/04/20 20:01 Temperature Temperature Source Pulse Rate 73 71 77 Pulse Rate from SpO2 Sensor 72 72 76 Respiratory Rate 19 23 29 H Respiratory Depth Blood Pressure 154/93 H 158/96 H Blood Pressure Mean 113 116 Pulse Oximetry 96 97 97 Oxygen Delivery Method Sepsis Recent Fever Within 48 Hours Sepsis New/Unexplained Change in Mental Status Sepsis Action Taken by Nursing 08/04/20 20:02 08/04/20 20:30 08/04/20 20:31 Temperature Temperature Source Pulse Rate 75 77 76 Pulse Rate from SpO2 Sensor 76 77 76 Respiratory Rate 19 17 16 Respiratory Depth Blood Pressure 144/89 H Blood Pressure Mean 107 Pulse Oximetry 96 96 96 Oxygen Delivery Method Sepsis Recent Fever Within 48 Hours Sepsis New/Unexplained Change in Mental Status Sepsis Action Taken by Nursing Laboratory Data Attestation: I reviewed the patient's lab results. Result diagrams: 08/04/20 17:08 08/04/20 17:08 Lab Results 08/04/20 08/04/20 08/04/20 Range/Units 17:00 17:08 17:08 WBC 6.20 (4.8-10.8) K/uL RBC 5.13 (4.2-5.4) M/uL Hgb 15.2 (12.0-16.0) g/dL Hct 43.5 (37-47) % MCV 84.8 (80-100) fL MCH 29.6 (25-34) pg MCHC 34.9 (32-36) g/dL RDW Std Deviation 39.2 (36.4-46.3) fL RDW Coeff of Sky 12.8 (11.5-14.5) % Plt Count 290 (130-400) K/uL MPV 11.0 H (7.4-10.4) fL Immature Gran % (Auto) 0.2 % Neut % (Auto) 47.1 % Lymph % (Auto) 43.9 % [place] % (Auto) 6.6 % Eos % (Auto) 1.6 % Baso % (Auto) 0.6 % Neut # (Auto) 2.92 (1.4-6.5) K/uL Lymph # (Auto) 2.72 (1.2-3.4) K/uL [place] # (Auto) 0.41 (0.11-0.59) K/uL Eos # (Auto) 0.10 (0-0.5) K/uL Baso # (Auto) 0.04 (0-0.2) K/uL Immature Gran # (Auto) 0.01 (0.00-0.02) K/uL PT 10.1 (9.0-12.0) Seconds INR 1.0 (0.9-1.1) Sodium (136-145) mmol/L Potassium (3.5-5.1) mmol/L Chloride (98-107) mmol/L Carbon Dioxide (21-32) mmol/L Anion Gap (3-11) BUN (7-18) mg/dl Creatinine (0.6-1.2) mg/dl Est Cr Clr Drug Dosing ml/min Est GFR ( Amer) ml/min Est GFR (Non-Af Amer) ml/min BUN/Creatinine Ratio (10-20) Glucose (70-99) mg/dl Calcium (8.5-10.1) mg/dl Phosphorus (2.5-4.9) mg/dl Magnesium (1.8-2.4) mg/dl Total Bilirubin (0.2-1) mg/dl Direct Bilirubin (0-0.2) mg/dl AST (15-37) U/L ALT (12-78) U/L Alkaline Phosphatase (45-117) U/L Troponin I (0-0.045) ng/ml Total Protein (6.4-8.2) gm/dl Albumin (3.4-5.0) gm/dl Globulin (2.5-4.0) gm/dl Albumin/Globulin Ratio (0.9-2) Lipase (73-393) U/L TSH (0.300-4.500) uIu/ml Lyme Disease IgG Ab Negative (Negative) Lyme Disease IgM Ab Negative (Negative) COVID-19 Eval Order SARS-CoV-2 (PCR) (Negative) 08/04/20 08/04/20 08/04/20 Range/Units 17:08 18:10 18:10 WBC (4.8-10.8) K/uL RBC (4.2-5.4) M/uL Hgb (12.0-16.0) g/dL Hct (37-47) % MCV (80-100) fL MCH (25-34) pg MCHC (32-36) g/dL RDW Std Deviation (36.4-46.3) fL RDW Coeff of Sky (11.5-14.5) % Plt Count (130-400) K/uL MPV (7.4-10.4) fL Immature Gran % (Auto) % Neut % (Auto) % Lymph % (Auto) % [place] % (Auto) % Eos % (Auto) % Baso % (Auto) % Neut # (Auto) (1.4-6.5) K/uL Lymph # (Auto) (1.2-3.4) K/uL [place] # (Auto) (0.11-0.59) K/uL Eos # (Auto) (0-0.5) K/uL Baso # (Auto) (0-0.2) K/uL Immature Gran # (Auto) (0.00-0.02) K/uL PT (9.0-12.0) Seconds INR (0.9-1.1) Sodium 138 (136-145) mmol/L Potassium 3.7 (3.5-5.1) mmol/L Chloride 105 (98-107) mmol/L Carbon Dioxide 27 (21-32) mmol/L Anion Gap 6.0 (3-11) BUN 9 (7-18) mg/dl Creatinine 0.79 (0.6-1.2) mg/dl Est Cr Clr Drug Dosing 83.4 ml/min Est GFR ( Amer) 99.1 ml/min Est GFR (Non-Af Amer) 85.5 ml/min BUN/Creatinine Ratio 11.7 (10-20) Glucose 201 H (70-99) mg/dl Calcium 9.4 (8.5-10.1) mg/dl Phosphorus 2.8 (2.5-4.9) mg/dl Magnesium 2.3 (1.8-2.4) mg/dl Total Bilirubin 1.3 H (0.2-1) mg/dl Direct Bilirubin 0.2 (0-0.2) mg/dl AST 18 (15-37) U/L ALT 43 (12-78) U/L Alkaline Phosphatase 102 (45-117) U/L Troponin I < 0.015 (0-0.045) ng/ml Total Protein 7.8 (6.4-8.2) gm/dl Albumin 4.4 (3.4-5.0) gm/dl Globulin 3.4 (2.5-4.0) gm/dl Albumin/Globulin Ratio 1.3 (0.9-2) Lipase 244 (73-393) U/L TSH 1.250 (0.300-4.500) uIu/ml Lyme Disease IgG Ab (Negative) Lyme Disease IgM Ab (Negative) COVID-19 Eval Order Covid19 at [facility] SARS-CoV-2 (PCR) NEGATIVE (Negative) Administered Medications Acetaminophen (Acetaminophen 325 Mg Tab) 650 mg PO Q4H PRN PRN Reason: Pain Stop: 09/03/20 23:03 Last Admin: 08/04/20 23:33 Dose: 650 mg Documented by: [id number] Discontinued Medications Aspirin (Aspirin Chew 324 Mg) 324 mg PO NOW STA Stop: 08/04/20 19:06 Last Admin: 08/04/20 19:11 Dose: 324 mg Documented by: [id number] Sodium Chloride (Nss) 500 mls @ 999 mls/hr IV .Q31M STA Stop: 08/04/20 17:36 Last Infusion: 08/04/20 17:55 Dose: 0 mls/hr Documented by: [id number] Admin: 08/04/20 17:12 Dose: 999 mls/hr Documented by: [id number] Ioversol (Optiray 350 500ml) 120 ml IV ONCE ONE Stop: 08/04/20 18:37 Last Admin: 08/04/20 18:38 Dose: 120 ml Documented by: [id number] Imaging Data Radiologist's Impression: Chest CTA 08/04/20 17:06 CT ANGIOGRAPHY OF THE CHEST, PULMONARY EMBOLUS PROTOCOL CLINICAL HISTORY: cp/sob with minimal exertion, r/o PE COMPARISON STUDY: Chest CT May 27, 2019. Chest radiograph performed earlier today. TECHNIQUE: Following IV administration of 120 mL of Optiray, helical axial images of the chest were obtained utilizing the pulmonary embolus protocol. Maximal intensity projections and sagittal and coronal reformats were viewed on an independent 3D workstation. IV contrast was administered without complication. Automated exposure control was utilized for the study. A dose lowering technique was utilized adhering to the principles of ALARA. CT DOSE: 287.56 mGy.cm FINDINGS: No pulmonary emboli are identified. There is no thoracic aortic dissection. The size of the heart is within normal limits. There is no pericardial effusion. No enlarged thoracic lymph nodes are present. Central airways are patent. There is no consolidation to suggest pneumonia. There is no pneumothorax or pleural effusion. Visualized portions of the upper abdomen demon strate geographic hepatic steatosis. IMPRESSION: 1. No pulmonary emboli identified. 2. No acute process within the chest. 3. Hepatic steatosis. ACT 112: Negative or not required by law. Electronically signed by: Ori Florentino M.D. 08/04/2020 6:59 PM Chest X-Ray 08/04/20 17:06 XR chest 1V portable CLINICAL HISTORY: Chest Pain COMPARISON STUDY: Chest CT May 27, 2019. FINDINGS: Lung volumes are normal. Lungs are clear. There is no pneumothorax or pleural effusion. Cardiac size is normal. Mediastinal contours are normal. There is no evidence for pulmonary edema. IMPRESSION: No acute cardiopulmonary findings. ACT 112: Negative or not required by law. Electronically signed by: Ori Florentino M.D. 08/04/2020 6:16 PM Discharge Plan Visit Data Chief Complaint: Cardiac Assessment Stated Complaint: REFERED BY DR/ IRREGULAR EKG ED Provider: Augusto Mackenzie Discharge Problem: Exertional dyspnea, LBBB (left bundle branch block), Exertional chest pain Patient Disposition: Admitted As Inpatient Discharge Instructions Interventions: ED Discharge Assessment Last Done: 08/04/20 22:36
[2020-08-04] MEDS ORDERED: POLYETHYLENE (MIRALAX) 17 GM PACK PO PRN (21:00)
[2020-08-04] MEDS ORDERED: ALBUTEROL HFA 8 GM INHALER INH PRN (22:59)
[2020-08-04] MEDS ORDERED: MELATONIN 3 MG TAB PO PRN (22:59)
[2020-08-04] MEDS ORDERED: ACETAMINOPHEN 325 MG TAB PO PRN (23:04)
--- NOTE | 2020-08-04 23:57 | History & Physical Report ---
Date of Service August 04, 2020 Assessment & Plan (1) Dyspnea on exertion: Mrs. Cunningham is a 55 yo woman with a PMHx of HTN, HLD, and DM2 who was referred to the emergency department for evaluation of dyspnea on exertion and chest heaviness with a new LBBB noted on outpatient EKG. - etiology: secondary to unstable angina > underlying pulmonary disease. Chest CTA ruled out PE. Hgb normal, anemia ruled out. - She certainly has risk factors for ACS, however history is only slightly concerning for angina (chest discomfort was reproducible on exam, patient stated symptoms could come on at rest). - EKG did show a new onset LBBB, which could be indicative of an ACS. No Sgarbossa criteria met; patient is not having any chest pain or dyspnea upon presentation - initial trop neg. trend. If troponin remains negative, patient would likely benefit from a stress echo, however, given the timing of her admission (), I am unsure if this study can be done. I will order a resting study in the interim - heparin drip was not started (patient denied any chest pain and trop was not elevated) - cardiology consult not placed, however consider adding if troponin rises. - pulmonary disease unlikely as patient does not have appreciable smoking history, lungs appeared structurally normal on Chest CT (2) LBBB (left bundle branch block): - new finding (when compared to previous EKGs) - unable to definitely discern associated acute ischemia, however no sgarbossa criteria were met - recommend outpatient cardiology follow up (3) Hyperlipidemia: - fasting lipid panel ordered for am - continue home dose statin (4) Type 2 diabetes mellitus: - HbA1c at 7.1 on 05/05/20 - will repeat level in am - continue home glimeperide and victoza - not on an GUI due to angioedema - continue high-intensity statin (5) Hypertension: - continue home dose amlodipine (6) Depression: - continue home dose escitalopram DVT ppx: Lovenox Diet: NPO in case of possible stress test/cath. When able to do PO intake: HH and DM2 carb consistent diet recommended Dispo: Med/tele Code: Full Admission and Anticipated Discharge Date Admission Date: August 04, 2020 History of Present Illness Primary Care Provider: Xander Ho MD Mrs. Cunningham is a 55 yo woman with a PMHx of hypertension, hyperlipidemia, and type II diabetes mellitus who was referred to the emergency department today by her family doctor for further evaluation of chest pressure and dyspnea on exertion. Mrs. Cunningham states these symptoms have been progressively worse over the past 2 months. She says they can come on with activity (ascending a flight of stairs seems to be most provocative) but can also occur at rest. They are not positional, no relation to meal consumption. When the symptoms come on, they typically self-resolve within 2-3 minutes. She has not tried taking any medication for the symptoms. At her family doctor's office today, an EKG was obtained, which showed a LBBB. This was a new finding compared to her prior EKG. She was directed to the ED for further management. Family History: No heart or pulmonary disease. Social Hx: She did smoke cigarettes "on a social basis only" for several years - quit totally in 1995. Social Etoh consumption (seems to be < 2 beers per week). In the ED, her CBC was normal. Coags normal. Electrolytes and kidney function normal. Initial trop was undetectable. Lipase not elevated. EKG showed normal sinus rhythm with a new LBBB. There was a first degree AV shannon block. Late transition. CXR was unremarkable. Chest CTA showed no PE, unremarkable. She was given Aspirin 324mg. Allergies Allergy/AdvReac Type Severity Reaction Status Date / Time diflunisal Allergy Unknown RASH Verified 08/04/20 18:19 metformin [From Glucophage] Allergy . Verified 08/04/20 18:19 bacitracin AdvReac Mild RASH Verified 08/04/20 18:19 lisinopril AdvReac Mild Angiodema Verified 08/04/20 18:19 GUI Inhibitors AdvReac Unknown Angioedema Verified 08/04/20 18:19 estradiol AdvReac Angioedema Verified 08/04/20 18:19 hydrochlorothiazide AdvReac Angioedema Verified 08/04/20 18:19 Home Medications Medication Instructions Recorded Confirmed Type Lactobacillus 1 cap PO QAM cap 09/08/18 08/04/20 History acidophilus-Bifidobac.animalis 31 billion cell capsule omega-3 acid ethyl esters 1 gram 1 cap PO QAM cap 09/09/18 08/04/20 History capsule ascorbic acid (vitamin C) 1,000 mg PO QAM 05/27/19 08/04/20 History albuterol sulfate 90 mcg/actuation 2 puffs INHALATION Q4H PRN #18 gm 05/28/19 08/04/20 Rx aerosol inhaler ibuprofen 800 mg tablet 800 mg PO TID PRN #90 tab 09/07/19 08/04/20 Rx fluticasone propionate 50 2 spray INTRANASAL DAILY PRN #15.8 11/03/19 08/04/20 Rx mcg/actuation nasal ml spray,suspension cetirizine 10 mg tablet 10 mg PO .every other day tab 01/05/20 08/04/20 History loratadine 10 mg capsule 10 mg PO .every other day cap 01/05/20 08/04/20 History zolpidem 5 mg tablet 5 mg PO HS PRN #30 tab 01/05/20 08/04/20 History hydrocortisone 2.5 % topical cream 1 applic TOPICAL TID PRN #30 g 01/12/20 08/04/20 Rx blood sugar diagnostic #10 ea 02/21/20 08/04/20 History pen needle, diabetic 31 gauge x ea 03/31/20 08/04/20 History 3/16" glimepiride 1 mg tablet 1 mg PO QAM #90 tab 04/03/20 08/04/20 Rx lorazepam 0.5 mg tablet 0.5 - 1 mg PO DAILY PRN #30 tab 05/08/20 08/04/20 Rx Victoza 3-Jj 1.8 mg SQ QAM 08/04/20 08/04/20 History amlodipine 2.5 mg PO QAM 08/04/20 08/04/20 History atorvastatin 20 mg PO QAM 08/04/20 08/04/20 History cholecalciferol (vitamin D3) 50 mcg PO QAM 08/04/20 08/04/20 History escitalopram oxalate 10 mg PO QAM 08/04/20 08/04/20 History nitroglycerin 0.4 mg SUBLINGUAL ONCE PRN 30 Days 08/05/20 Rx #10 tab MDD 2 tabs Past Med/Surg History Medical History Abdominal pain Abnormal finding on imaging Acid reflux Allergic rhinitis Anemia Depression Diabetes Headache, cervicogenic Hepatic steatosis Hypertension Insomnia Intractable abdominal pain Jejunal inflammation Plantar fasciitis Pneumonia Seizures Type 2 diabetes mellitus Surgical History H/O colonoscopy H/O esophagogastroduodenoscopy History of hernia repair History of hysterectomy with bilateral oophorectomy History of laparoscopy fulguration of oviducts History of oral surgery History of tonsillectomy Family History Mother Hypertension Pulmonary embolism Daughter Nephrolithiasis Father Cancer Diabetes Grandmother Breast cancer Grandfather Cardiac disorder Social History Smoking Status: Former smoker Tobacco Type: Cigarettes Hx Alcohol Use: No Hx Substance Use: No Preferred Language: Irish Communication Ability: Effective Visual Impairment: Limited Hearing Ability: Normal Backfiller Required: No Beliefs That Will Affect Care: None marital status: Single Current Living Situation: Family current occupational status: employed 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 Feels Safe at Home: Yes Childhood Exposure to Second-Hand Smoke: Yes caffeine: Yes Dental Care, Regularly: Yes Physical Activity Frequency: 1-2 Times per Week Seatbelt Use: always Sunscreen Use: Yes Assistive Devices: Glasses Review of Systems Cardiovascular: + chest pain at rest, + chest pain with activity and + dyspnea Physical Exam Constitutional: WD/WN, vitals as above cooperative; no acute distress Eyes: + anicteric sclerae ENMT: external ear and nose normal, oropharynx normal Neck: normal visual inspection and trachea midline Respiratory: normal respiratory effort, lungs clear to auscultation no cough Auscultation: no crackles, no rales and no wheezes Cardiovascular: RRR, no murmur, no edema Heart Sounds: normal S1 and normal S2 Vessels: normal carotid upstroke; no JVD and no carotid bruit Extremities: no pedal edema Chest (Breasts): Additional Comments: + chest wall is tender to palpation Gastrointestinal (Abdomen): normal bowel sounds, soft, nontender, no hepatosplenomegaly Skin: no rashes, warm and dry Psychiatric: A+Ox3, euthymic affect Results & Data Results & [facility] ([facility]) Vital Signs (Past 12 Hours) Vital Signs Temp Pulse Pulse Resp BP BP Pulse Ox 08/04/20 23:46 36.6 C 82 18 164/92 H 95 08/04/20 22:36 80 18 132/91 96 08/04/20 22:01 78 17 96 05/14/21 22:00 80 18 132/91 96 08/04/20 21:31 79 12 97 08/04/20 21:30 77 19 153/93 H 98 08/04/20 21:01 80 19 97 08/04/20 21:00 78 15 160/86 H 97 08/04/20 20:31 76 16 96 08/04/20 20:30 77 17 144/89 H 96 08/04/20 20:02 75 19 96 08/04/20 20:01 77 29 H 158/96 H 97 08/04/20 19:31 71 23 97 08/04/20 19:30 73 19 154/93 H 96 08/04/20 19:09 71 21 97 08/04/20 19:08 72 23 162/94 H 98 08/04/20 19:07 120 H 21 97 08/04/20 18:30 71 21 96 08/04/20 18:07 78 16 96 08/04/20 18:06 73 20 168/100 H 94 08/04/20 17:30 72 21 08/04/20 17:00 78 20 08/04/20 16:57 78 20 08/04/20 16:43 36.5 C 80 18 161/92 H 98 08/04/20 15:46 84 20 133/78 Supervising Physician Co-Signing Physician Notes Attending addendum: I have physically seen this patient, have supervised the medical residents activities, and agree with the H&P unless as otherwise noted. Assessment and Plan: Dyspnea on exertion/chest pain/new left bundle branch block/hypertension- The patient will be admitted to telemetry for serial cardiac enzymes, serial EKG's, cardiac rhythm monitoring and a 2-D echocardiogram with Dopplers. Continue amlodipine. Hold NSAIDs Consult cardiology Diabetes mellitus- Hold Victoza and glimepiride. Placed on Accu-Cheks before meals and at bedtime with NovoLog coverage per scale Check hemoglobin A1c Hyperlipidemia- Continue atorvastatin 20 mg daily Check a fasting lipid panel Depression- Continue Lexapro Remaining orders and notations as noted Resident Activity Tracking Resident Involvement: Resident Care Provided Care Provided: Adult Hospital Medicine
--- NOTE | 2020-08-05 06:55 | Hospitalist Progress Note ---
Date of Service August 05, 2020 Assessment & Plan Admission and Anticipated Discharge Date Admission Date: August 04, 2020 Subjective She has had the chest heaviness while here. 3-4 discomfort L chest near midline. Nothing makes it better or worse. Frequency is 30-30x/day. Has worsened in frequency and duration over 2 months. Does not radiate. No numb/ting. nausea/vomiting. + pleuritic. not orthopnec. No prior hx prior to 2 months. No fam hx. 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 No recent injury. Some mild lightheadedness when the symptoms come. Social tobacco hx. quit . <1/2 ppd hx. No hx lung dizese. Occasional acute bronchitis, used inhaler. Has been a year since used inhaler. Review of Systems Review of Systems: Constitutional: Denies fever, chills, Eyes: Denies blurry vision, vision changes Cardiovascular: Denies chest pain. + palpitation? when having the orozco and chest pains. Respiratory: Denies shortness of breath Gastrointestinal: Denies abdominal pain, nausea, vomiting, constipation, diarrhea Genitourinary: Denies urinary symptoms including dysuria Musculoskeletal: Denies weakness, muscle aches/pain, joint aches/pain Neurological: Denies headache, numbness, tingling, focal weakness Denies tick bites. Physical Exam Physical Exam: General: Grossly A&O. NAD. Cooperative. HEENT: Atraumatic, normocephalic. EOMI Pulm: CTAB. -wheezes, -rales, -rhonchi. No respiratory distress. Cardiac: RRR, -mrg. Radial pulses intact and symmetrical. No LE edema. Abdominal: Nontender, nondistended, soft. Results & Data Results & Data ([facility]) Vital Signs (Past 12 Hours) Vital Signs Temp Pulse Pulse Resp BP BP BP 08/05/20 04:28 36.7 C 71 18 126/75 08/04/20 23:46 36.6 C 82 18 164/92 H 08/04/20 22:36 80 18 132/91 08/04/20 22:01 78 17 08/04/20 22:00 80 18 132/91 08/04/20 21:31 79 12 08/04/20 21:30 77 19 153/93 H 08/04/20 21:01 80 19 08/04/20 21:00 78 15 160/86 H 08/04/20 20:31 76 16 08/04/20 20:30 77 17 144/89 H 08/04/20 20:02 75 19 08/04/20 20:01 77 29 H 158/96 H 08/04/20 19:31 71 23 08/04/20 19:30 73 19 154/93 H 08/04/20 19:09 71 21 08/04/20 19:08 72 23 162/94 H 08/04/20 19:07 120 H 21 Pulse Ox 08/05/20 04:28 96 08/04/20 23:46 95 08/04/20 22:36 96 08/04/20 22:01 96 08/04/20 22:00 96 08/04/20 21:31 97 08/04/20 21:30 98 08/04/20 21:01 97 08/04/20 21:00 97 08/04/20 20:31 96 08/04/20 20:30 96 08/04/20 20:02 96 08/04/20 20:01 97 08/04/20 19:31 97 08/04/20 19:30 96 08/04/20 19:09 97 08/04/20 19:08 98 08/04/20 19:07 97 Resident Activity Tracking Resident Involvement: Resident Care Provided Care Provided: Adult Hospital Medicine
[2020-08-05 06:58] LABS: Chol HDL Ratio 3; Cholesterol 152 mg/dl (0-200); HDL Cholesterol 62 mg/dl; LDL Cholesterol Calculated 52 mg/dl; Triglycerides 190 mg/dl (0-150); VLDL Cholesterol 38 mg/dl
[2020-08-05 07:07] LABS: Estimated Average Glucose 189 mg/dl; Hemoglobin A1C 8.2 % (4.5-5.6)
[2020-08-05] MEDS ORDERED: PHARMACY GLYCEMIC MGMT CONSULT PRN (08:39)
[2020-08-05] MEDS ORDERED: ESCITALOPRAM OXALATE 10 MG TAB PO SCH (09:00)
[2020-08-05] MEDS ORDERED: ASCORBIC ACID 500 MG TAB PO SCH (09:00)
[2020-08-05] MEDS ORDERED: amLODIPine BESYLATE 5 MG TAB PO SCH (09:00)
[2020-08-05] MEDS ORDERED: INSULIN GLARGINE SOLOSTAR 100 UNITS/ML 3 ML PEN SC SCH ×2 (09:00)
[2020-08-05] MEDS ORDERED: ENOXAPARIN INJ 40 MG/0.4 ML SYR SQ SCH (09:00)
[2020-08-05] MEDS ORDERED: CHOLECALCIFEROL 1,000 UNITS 25 MCG TAB PO SCH (09:00)
[2020-08-05] MEDS ORDERED: GLIMEPIRIDE 2 MG TAB PO SCH (09:00)
[2020-08-05] MEDS ORDERED: ATORVASTATIN 20 MG TAB PO SCH (09:00)
--- NOTE | 2020-08-05 09:22 | Pharmacy Report ---
Pharmacy Glycemic Short Note 2 - Date of Service August 05, 2020 - Glycemic Short BSG Results (Last 24 hours): 08/04/20 17:08 Glucose 201 H OUTPATIENT ANTIDIABETIC REGIMEN: * Victoza (just started recently) * Glimepiride * A1c = 8.2% on 08/05/20 ASSESSMENT: * 55yo T2DM female with suboptimal degree of outpatient control per recent A1c- however, patient recently started victoza so A1c may improve once medications are titrated to therapeutic dosing. * Pt is maintained on oral antidiabetic agents as an outpatient (glimepiride) * Oral agents are not recommended for inpatient use d/t drug interactions, changing PO intake, and difficulty titrating for acute hyper/hypoglycemia. ADA recommends re-initiating outpatient oral agents 1-2 days prior to discharge if/when appropriate if they were held on admission. * Typically, glimepiride causes longstanding hypoglycemia when used inpatient. Will hold and use NovoLog in its place. * Will hold glimepiride for admission and utilize SQ basal bolus insulin regimen which is the recommended regimen for inpatient glycemic control. * Pt is NPO for possible stress test/cath- will start with low dose, weight based insulin dosing and titrate based on BSG trends. PLAN FOR INPATIENT GLYCEMIC CONTROL: * Hold outpatient diabetes medications * Basal insulin * Lantus 15 units (0.2 units/kg) SQ daily * Bolus insulin * NovoLog per scale ACHS or Q6hrs while NPO * Goal Range: Low 110 mg/dL - High 140 mg/dL * Correction Factor: 25 mg/dL/unit * Nutritional / Prandial insulin per carb ratio of 1 unit per 9 grams CHO consumed PLAN FOR DISCHARGE: * TBD
[2020-08-05] MEDS: INSULIN ASPART 100 UNITS/ML 3 ML PEN SC SCH ×2 (09:42→12:34)
--- NOTE | 2020-08-05 12:22 | XCELERA ---
[id number]
[2020-08-05] MEDS ORDERED: VICTOZA~ORDER AWAITING ACTION SCH (16:00)
--- NOTE | 2020-08-05 16:25 | Electrocardiogram Report ---
Test Reason : Blood Pressure : / mmHG Vent. Rate : 074 BPM Atrial Rate : 074 BPM P-R Int : 190 ms QRS Dur : 148 ms QT Int : 448 ms P-R-T Axes : 046 -21 075 degrees QTc Int : 497 ms Normal sinus rhythm Left bundle branch block Abnormal ECG When compared with ECG of 27-MAY-2019 14:00, Left bundle branch block is now Present Confirmed by Ang Chandler ([id number]) on 08/05/2020 4:24:55 PM Referred By: Ida Barajas Confirmed By:Yonatan Chandler
--- NOTE | 2020-08-05 17:39 | Billing Data ---
Date of Service August 05, 2020 Coding Level of Care Code 66555 OBS Care - Discharge
--- NOTE | 2020-08-05 18:18 | Discharge Summary ---
Date of Service August 05, 2020 Admission HPI Per Admitting Provider Mrs. Cunningham is a 55 yo woman with a PMHx of hypertension, hyperlipidemia, and type II diabetes mellitus who was referred to the emergency department today by her family doctor for further evaluation of chest pressure and dyspnea on exertion. Mrs. Cunningham states these symptoms have been progressively worse over the past 2 months. She says they can come on with activity (ascending a flight of stairs seems to be most provocative) but can also occur at rest. They are not positional, no relation to meal consumption. When the symptoms come on, they typically self-resolve within 2-3 minutes. She has not tried taking any m edication for the symptoms. At her family doctor's office today, an EKG was obtained, which showed a LBBB. This was a new finding compared to her prior EKG. She was directed to the ED for further management. Family History: No heart or pulmonary disease. Social Hx: She did smoke cigarettes "on a social basis only" for several years - quit totally in 1995. Social Etoh consumption (seems to be < 2 beers per week). In the ED, her CBC was normal. Coags normal. Electrolytes and kidney function normal. Initial trop was undetectable. Lipase not elevated. EKG showed normal sinus rhythm with a new LBBB. There was a first degree AV shannon block. Late transition. CXR was unremarkable. Chest CTA showed no PE, unremarkable. She was given Aspirin 324mg. Principal Diagnosis chest pain -see hospital course Discharge Exam gen aaox3 pleasant nad heent nc at mmm lungs cta b/l although mildly more t ubular coarse but nonspecific - no r/r/w no accessory muscles. ribs TTP anteriorly. skin no rashes no pallor or icterus. neuro no focal deficits Discharge Data Allergies Allergy/AdvReac Type Severity Reaction Status Date / Time diflunisal Allergy Unknown RASH Verified 08/04/20 18:19 metformin [From Glucophage] Allergy . Verified 08/04/20 18:19 bacitracin AdvReac Mild RASH Verified 08/04/20 18:19 lisinopril AdvReac Mild Angiodema Verified 08/04/20 18:19 GUI Inhibitors AdvReac Unknown Angioedema Verified 08/04/20 18:19 estradiol AdvReac Angioedema Verified 08/04/20 18:19 hydrochlorothiazide AdvReac Angioedema Verified 08/04/20 18:19 Consultations 08/04/20 19:05 ED Decision to Admit Stat Ordered Studies 08/04/20 17:06 CT angio chest PE protocol Stat Hospital Course (1) Exertional dyspnea: w new LBBB cardiac is dx of exclusion -SD ruled out with negative troponins -echo without RWMA -stress testing to be done next - pt desperately wants to do as outpt. discussed risks/benefits. by heart score, she's moderate, suggesting would maybe be better to do inpatient, but by hx, her sx have been going on for months and she has no trop and no RWMA on echo --> making it seem reasonable to do as outpt. we discussed this and she still wants to go home --> asa, metoprolol, prn nitro, low threshold to seek care if sx recur/persist/don't go away with rest. low exertion until stress. for stress test next week (contacted cardio team to facilitate) if not cardiac - then would consider PFTs, if all negative ??rib dysfunction causing pain leading to splinted breathing? uncontrolled DM -discussed "high sugars clog arteries" as far as why to care. discussed diet typically being major factor - simple/starchy/bready carbs. discussed postprandial glucose monitoring to learn from diet and then start to avoid carbs that spike sugars visual floaters - for eye exam as soon as feasible. stable for home Total Time Total Time Spent Total Time Spent (In Minutes): >30 Discharge Plan Discharge Items Patient Disposition: Home - Self-Care Reason For Visit: CHEST PAIN Discharge Diagnosis: chest pain Activity: As commented below Activity Comment: avoid strenous activity until result of stress test Non-emergency contact: Primary Care Provider Call non-emergency contact if: you have any medication questions, your symptoms worsen and you have a fever Follow-up/Referrals: Xander Ho MD [Primary Care Provider] - Diet: Carb Consistent or DM2 Addtl Attending Provider Instructions: Codey Ms. Cunningham, [place] were admitted to [facility] for evaluation of 2 weeks of left chest pressure and shortness of breath on exertion. The workup performed here included chest imaging, ekg, and ultrasound of your heart. The ultrasound was normal. The ekg showed a left bundle branch block which means it is hard for us to tell if there are any changes concerning for ischemia. Your chest pain was reproducible on palpation which is often seen in musculoskeletal causes of chest pain. However, your overall presentation (continued chest pressure even while in the hospital) and risk factors (diabetes), puts you at moderate risk of heart disease. Therefore, I discussed the risks/benefits of going home (w/ avoidance of exertion) vs staying in the hospital and you opted for the former. I have reached out to try to schedule you for a treadmill stress test for Friday08/07/20. If you do not here back from the casting wheel operator's office by Friday 4pm, please call the cardiology office to confirm. If the cardiology workup ends up normal, other causes of your symptoms can be explored, with pulmonary being the next (e.g. pulmonary function testing may be indicated). After that, musculoskeletal causes can be considered/treated, for example, with osteopathic manipulative treatment (OMT). A prescription for nitroglycerin has been sent to your pharmacy in [place]. Take 1 tab (sublingual) if you have severe chest pain. Wait 5 minutes and if it is still severe, you can take a second. At that time, you should be contacting the ED for evaluation if you end up needing the second tab. Your diabetes was temporarily managed on insulin while you were here, but you may resume your previous home regimen upon going home. Dietary recommendations were discussed in detail. If you have further questions, please f/u w/ your PCP. Some PCP offices have a diabetes/dietary educator whom you can be referred to. Please see your primary care doctor within 1 week as well. An appointment will be made for you (our staff will call your PCP's office on Friday), but if you do not hear back, please schedule the appointment. If you develop any new or worsening symptoms including fever, chills, sweats, severe chest pain/pressure, difficulty breathing, uncontrolled nausea/vomiting, rash, wheezing, passing out or nearly passing out, bleeding, black/bloody bowel movements, or other new or concerning symptoms please call your primary care physician, or call 911 for re-evaluation in the emergency department if you are very concerned. Pending Studies at Discharge: No Stand-Alone Forms: My [employer], Smoking Cessation Medications and DC Order Prescriptions: New nitroglycerin 0.4 mg tablet, sublingual 0.4 mg sublingual ONCE MDD 2 tabs PRN (Reason: severe chest pain) 30 Days Qty: 10 RF: 0 Continued albuterol sulfate 90 mcg/actuation HFA aerosol inhaler 2 puffs inhalation Q4H PRN (Reason: Shortness Of Breath) Qty: 18 RF: 3 ibuprofen 800 mg tablet 800 mg PO TID PRN (Reason: Pain) Qty: 90 RF: 0 fluticasone propionate 50 mcg/actuation spray,suspension 2 spray intranasal DAILY PRN (Reason: Allergic Symptoms) Qty: 15.8 RF: 2 hydrocortisone 2.5 % cream 1 applic topical TID PRN (Reason: hemorrhoids) Qty: 30 RF: 1 glimepiride 1 mg tablet 1 mg PO QAM Qty: 90 RF: 3 lorazepam 0.5 mg tablet 0.5 - 1 mg PO DAILY PRN (Reason: Anxiety) Qty: 30 RF: 0 Lacto.acidophilus-Bif.animalis 31 billion cell capsule 1 cap PO QAM RF: 0 omega-3 acid ethyl esters 1 gram capsule 1 cap PO QAM RF: 0 cetirizine 10 mg tablet 10 mg PO .every other day RF: 0 loratadine 10 mg capsule 10 mg PO .every other day RF: 0 zolpidem 5 mg tablet 5 mg PO HS PRN (Reason: Sleep) Qty: 30 RF: 0 (DME) Prodigy No Coding Strip See Rx Instructions .ROUTE .MEDSUPPLY Qty: 10 RF: 0 (DME) pen needle, diabetic [Unifine Pentips] 31 gauge x 3/16" needle See Rx Instructions .ROUTE .MEDSUPPLY RF: 0 ascorbic acid (vitamin C) 1,000 mg Tablet 1,000 mg PO QAM RF: 0 atorvastatin 20 mg tablet 20 mg PO QAM RF: 0 amlodipine 2.5 mg tablet 2.5 mg PO QAM RF: 0 escitalopram oxalate 10 mg tablet 10 mg PO QAM RF: 0 cholecalciferol (vitamin D3) 50 mcg (2,000 unit) capsule 50 mcg PO QAM RF: 0 Victoza 3-Jj 0.6 mg/0.1 mL (18 mg/3 mL) pen injector 1.8 mg SQ QAM RF: 0 Discharge Orders: Discharge Order (Routine); Ordered 08/05/20 Ordered By: Jesu Roque/Other Patient Handouts: Managing Type 2 Diabetes, Managing Diabetes: The A1C Test Admission Data Admit Date/Time: 08/04/20 20:52 Attending Provider: Primitivo Dunn Admit Provider: Clarisse Lu Primary Care Provider: Xander Ho Other Providers: Charli Montejo Other Interventions: Discharge Summary Assessment (RN) Last Done: 08/05/20 17:06 Coding Level of Care Code None Diagnoses Exertional dyspnea R06.00
--- NOTE | 2020-08-05 19:46 | Billing Data ---
Date of Service August 05, 2020 Coding Level of Care Code 44419 OBS Care - Level 3
[2020-08-06] MEDS ORDERED: CETIRIZINE HCL 10 MG TABLET PO SCH (09:00)
[2020-08-06] MEDS ORDERED: LORATADINE 10 MG TAB PO SCH (09:00)
== END 2020-08-05 17:39 | disposition home or self-care (01) ==
LOC: ED 16:40 → 2N 16:40 → SUATTDRO 20:52 → 2N 22:36
DX: I10 Essential (primary) hypertension; I44.7 Left bundle-branch block, unspecified; R06.00 Dyspnea, unspecified; Z87.891 Personal history of nicotine dependence; Z79.899 Other long term (current) drug therapy; E11.65 Type 2 diabetes mellitus with hyperglycemia; Z88.8 Allergy status to other drugs, medicaments and biological substances; E78.5 Hyperlipidemia, unspecified; R07.9 Chest pain, unspecified